=== PATIENT | male | born 1960 | race Caucasian/White ===

== ENCOUNTER 2018-03-24 15:55 | Inpatient (IN) | payer OTHER ==
[2018-03-24 17:38] VITALS: BMI 26.7
--- NOTE | 2018-03-24 18:09 | HP ---
Admission [facility] Chief Complaint: crack / cocaine rehabilitation Allergies/Adverse Reactions: Allergies Allergy/AdvReac Type Severity Reaction Status Date / Time No Known Drug Allergies Allergy Verified 03/24/18 17:36 NKA Allergy Uncoded 03/24/18 17:37 History of Present Illness: 57 yo male with nicotine and crack / cocaine dependence is here seeking rehabilitation. PMHX: depression. Denies suicidal / homicidal ideation or hx of suicide attempt. Last rehab five years ago, does not recall the name of the facility. Exam Limitations: No Limitations - Ebola screening Have you traveled outside of the country in the last 21 days: No (N) Have you had contact with anyone from an Ebola affected area: No Have you been sick,other than usual withdrawal symptoms: No Do you have a fever: No - Review of Systems Constitutional: No Symptoms Reported EENT: reports: No Symptoms Reported Respiratory: reports: No Symptoms reported Cardiac: reports: No Symptoms Reported GI: reports: No Symptoms Reported : reports: No Symptoms Reported Musculoskeletal: reports: No Symptoms Reported, Joint Stiffness Neuro: reports: No Symptoms reported Endocrine: reports: Increased Thirst Hematology: reports: No Symptoms Reported Psychiatric: reports: Orientated x3, Depressed Other Systems: Reviewed and Negative Patient History - Patient Medical History Hx Anemia: No Hx Asthma: No Hx Chronic Obstructive Pulmonary Disease (COPD): No Hx Cancer: No Hx Cardiac Disorders: No Hx Congestive Heart Failure: No Hx Hypertension: No Hx Hypercholesterolemia: No Hx Pacemaker: No HX Cerebrovascular Accident: No Hx Seizures: No Hx Dementia: No Hx Diabetes: No Hx Gastrointestinal Disorders: No Hx Liver Disease: No Hx Genitourinary Disorders: No Hx Sexually Transmitted Disorders: No Hx Renal Disease (ESRD): No Hx Thyroid Disease: No Hx Human Immunodeficiency Virus (HIV): No (declines testing ) Hx Hepatitis C: No Hx Depression: Yes Hx Suicide Attempt: No Hx Bipolar Disorder: No Hx Schizophrenia: No - Patient Surgical History Past Surgical History: No Hx Neurologic Surgery: No Hx Cataract Extraction: No Hx Cardiac Surgery: No Hx Lung Surgery: No Hx Breast Surgery: No Hx Breast Biopsy: No Hx Abdominal Surgery: No Hx Appendectomy: No Hx Cholecystectomy: No Hx Genitourinary Surgery: No Hx Section: No Hx Orthopedic Surgery: No Anesthesia Reaction: No - PPD History Previous Implant?: Yes Documented Results: Negative w/proof Implanted On Prior [facility] Admission?: No Date: 02/12/18 Results: 0MM PPD to be Administered?: No - Smoking Cessation Smoking history: Current every day smoker Have you smoked in the past 12 months: Yes Aproximately how many cigarettes per day: 10 Hx Chewing Tobacco Use: No Initiated information on smoking cessation: Yes 'Breaking Loose' booklet given: 03/24/18 - Substance & Tx. History Hx Alcohol Use: No Hx Substance Use: Yes Substance Use Type: Cocaine Hx Substance Use Treatment: Yes (5 years ago does not recall the name of the facility) - Substances Abused Cocaine Route: Smoking Frequency: 1-3 times last 30 days Amount used: $100 Age of first use: 38 Date of Last Use: 03/21/18 Family Disease History - Family Disease History Family History: Unable to Obtain Admission Physical Exam S - Vital Signs Vital Signs: Vital Signs - 24 hr 03/24/18 17:35 Temperature 99.6 F Pulse Rate 86 Respiratory 18 Rate Blood Pressure 90/65 - Physical General Appearance: Yes: No Apparent Distress, Disheveled, Other (malodorous, unkempt) HEENTM: Yes: EOMI, Hearing grossly Normal, Normal ENT Inspection, Normocephalic , Normal Voice, HELEN, Pharynx Normal, Tm's normal Respiratory: Yes: Chest Non-Tender, Lungs Clear, Normal Breath Sounds, No Respiratory Distress, No Accessory Muscle Use Neck: Yes: Within Normal Limits Breast: Yes: Breast Exam Deferred Cardiology: Yes: Regular Rhythm, Regular Rate Abdominal: Yes: Normal Bowel Sounds, Non Tender, Flat, Soft Genitourinary: Yes: Within Normal Limits Back: Yes: Normal Inspection Musculoskeletal: Yes: full range of Motion, Gait Steady, Pelvis Stable Extremities: Yes: Normal Capillary Refill, Normal Inspection, Normal Range of Motion, Non-Tender Neurological: Yes: legal paraprofessional II-XII NML intact, Fully Oriented, Alert, Motor Strength 5/5, Depressed Affect Integumentary: Yes: Normal Color, Dry, Warm Lymphatic: Yes: Within Normal Limits - Diagnostic (1) Cocaine dependence Current Visit: Yes Status: Acute Qualifiers: Substance use status: uncomplicated Qualified Code(s): F14.20 - Cocaine dependence, uncomplicated (2) Depression Current Visit: Yes Status: Acute Qualifiers: Depression Type: dysthymia Qualified Code(s): F34.1 - Dysthymic disorder (3) Poor hygiene Current Visit: Yes Status: Acute BHS Breath Alcohol Content Breath Alcohol Content: 0 Urine Drug Screen - Results Drug Screen Negative: No Urine Drug Screen Results: [facility]-Cocaine Inpatient Rehab Admission - Initial Determination Are CD services needed?: Yes Free of communicable disease: Yes Not in need of hospitalization: Yes - Rehab Admission Criteria Previous failed treatment: Yes Poor recovery environment: Yes Comorbidities: Yes Lacks judgement: Yes Patient is meeting Inpatient Rehab admission criteria:: Yes
[2018-03-24] MEDS ORDERED: LOPERAMIDE HCL 2 MG CAPSULE PO PRN (18:10)
[2018-03-24] MEDS ORDERED: MAG HYDROX/AL HYDROX/SIMETH 30 ML UNIT-DOSE CUP PO PRN (18:10)
[2018-03-24] MEDS ORDERED: NICOTINE POLACRILEX 2 MG GUM BC PRN (18:10)
[2018-03-24] MEDS ORDERED: ACETAMINOPHEN 325 MG TABLET (FP) PO PRN (18:10)
[2018-03-24] MEDS ORDERED: MAGNESIUM CITRATE 300 ML BOTTLE PO PRN (18:10)
[2018-03-24] MEDS ORDERED: IBUPROFEN 400 MG TABLET (FP) PO PRN (18:10)
[2018-03-24] MEDS ORDERED: guaiFENesin/D-METHORPHAN HB 10 ML UNIT-DOSE CUPS PO PRN (18:10)
[2018-03-24] MEDS ORDERED: P-EPHED 60MG/TRIPROLIDI 2.5MG TABLET PO PRN (18:10)
[2018-03-24] MEDS ORDERED: hydrOXYzine PAMOATE 50 MG CAPSULE (FP) PO PRN (18:10)
[2018-03-24] MEDS ORDERED: MENTHOL/PHENOL 1 EACH UD MM PRN (18:10)
[2018-03-24] MEDS ORDERED: MAGNESIUM HYDROX 2400MG/30ML ORAL SUSPENSION 30 ML CUP PO PRN (18:10)
[2018-03-24] MEDS: THIAMINE HCL 100 MG TABLET (FP) PO SCH (21:06)
[2018-03-24] MEDS ORDERED: MELATONIN 5 MG TABLETS PO PRN (22:00)
[2018-03-25 00:05] LABS: URINE APPEARANCE TURBID; URINE BILIRUBIN NEGATIVE (<2.0 mg/dL); URINE COLOR DKYELLOW; URINE GLUCOSE (UA) NEGATIVE (NEGATIVE); URINE KETONE NEGATIVE (NEGATIVE); URINE LEUK ESTERASE NEGATIVE (NEGATIVE); URINE NITRITE NEGATIVE (NEGATIVE); URINE PROTEIN NEGATIVE (NEGATIVE)
[2018-03-25] MEDS: NICOTINE 14 MG/24 HOURS TOPICAL PATCH TD SCH (09:43)
[2018-03-25] MEDS: PRENATAL VITAMINS W/ FOLIC ACID TABLET (FP) PO SCH (09:43)
[2018-03-25 10:20] LABS: HEMATOCRIT 43.5 % (35.4-49); HEMOGLOBIN 14.5 GM/dL (11.7-16.9); MCH 30.1 pg (25.7-33.7); MCHC 33.4 g/dl (32.0-35.9); MEAN CELL VOLUME 90.3 fl (80-96); MEAN PLT VOLUME 7.3 fl (7.5-11.1); PLATELET COUNT 286 K/MM3 (134-434); RBC 4.81 M/mm3 (4.00-5.60); RDW 13.9 % (11.9-15.9); WHITE BLOOD COUNT 7.1 K/mm3 (4.0-10.0)
--- NOTE | 2018-03-25 10:46 | HP ---
Psychiatrist Admission - Data Date of interview: 03/25/18 Admission source: [place] Identifying data: This is the first [facility] admission for this 57 years old single male, unemployed on SSD, domiciled living [facility] supportive housing Medical History: Unremarkable. Smokes 10 cigarettes daily Psychiatric History: Patient is very guarded and not forthcoming in providing information. Told real estate underwriter that he was diagnosed with depression, not Schizoprenia. He at first denies previous psychiatric admission then on further questioning admitted to one psychiatric hospitalization at [facility]. Reports that he receives [facility] care at [facility] and he is on Risperdal Consta 37.5 mg IM Q 2week. he said he got injection last on 03/18/18. Denies previus suicidal attempt. At present denies expriencing psychotic symptoms, s/H ideations Physical/Sexual Abuse/Trauma History: Denies history of emotional, physical or sexual as well as DV relationship. No service Additional Comment: Reports history of one felony convictio on charges of assault. Reports serving 2 years in [facility]. Reports being on parole till february Vital Signs: Vital Signs - 24 hr 03/24/18 03/24/18 03/25/18 17:35 19:11 00:30 Temperature 99.6 F 98.4 F Pulse Rate 86 84 Respiratory 18 16 18 Rate Blood Pressure 90/65 98/59 Allergies/Adverse Reactions: Allergies Allergy/AdvReac Type Severity Reaction Status Date / Time No Known Drug Allergies Allergy Verified 03/24/18 17:36 NKA Allergy Uncoded 03/24/18 17:37 Date of last physical exam: 03/24/18 Concur with the findings of this exam: Yes - Substance Abuse/Tx History Hx Alcohol Use: No Hx Substance Use: Yes Substance Use Type: Cocaine (Started smoking crack cocaine at age 38, consumes $ 100 worth monthly. Last smoked on 03/21/18) Hx Substance Use Treatment: Yes (3 previous inpt rehab ) Mental Status Exam - Mental Status Exam Alert and Oriented to: Time, Place, Person Cognitive Function: Fair Patient Appearance: Disheveled Mood: Hopeful, Euthymic (underlying irritability) Affect: Blunted Patient Behavior: Guarded, Cooperative Speech Pattern: Clear Voice Loudness: Normal Thought Process: Intact, Goal Oriented Thought Disorder: Not Present Hallucinations: Denies Suicidal Ideation: Denies Homicidal Ideation: Denies Insight/Judgement: Poor Sleep: Well Appetite: Good Muscle strength/Tone: Normal Gait/Station: Normal Psychiatric Findings - Problem List ([place] 1, 2,3) (1) Cocaine dependence Current Visit: Yes Status: Acute Qualifiers: Substance use status: uncomplicated Qualified Code(s): F14.20 - Cocaine dependence, uncomplicated (2) Nicotine dependence Current Visit: Yes Status: Chronic (3) Schizophrenia Current Visit: Yes Status: Chronic - Initial Treatment Plan Initial Treatment Plan: 1) Obtain collateral information from mental health provider about diagnoses, treatment. 2) Monitor progress
--- NOTE | 2018-03-25 11:17 | EKG ---
Test Reason : Blood Pressure : / mmHG Vent. Rate : 072 BPM Atrial Rate : 072 BPM P-R Int : 148 ms QRS Dur : 096 ms QT Int : 398 ms P-R-T Axes : 068 -03 040 degrees QTc Int : 435 ms NORMAL SINUS RHYTHM INCOMPLETE RIGHT BUNDLE BRANCH BLOCK BORDERLINE ECG NO PREVIOUS ECGS AVAILABLE Confirmed by BARRINGTON BUCKNER, ANNIKA ([id number]) on 03/25/2018 11:16:28 AM Referred By: Confirmed By:ANNIKA FERRIS MD
[2018-03-25 16:07] LABS: ALBUMIN 3.4 g/dl (3.4-5.0); ALK PHOS 59 U/L (45-117); BILIRUBIN,TOTAL 0.6 mg/dL (0.2-1.0); BLOOD UREA NITROGEN 13 mg/dL (7-18); CALCIUM 9.2 mg/dL (8.5-10.1); CO2 24 mmol/L (21-32); CREATININE 0.9 mg/dL (0.7-1.3); GLUCOSE,RANDOM 111 mg/dL (74-106); SGOT/AST 17 U/L (15-37); SGPT/ALT 23 U/L (12-78); TOT PROT 6.7 g/dl (6.4-8.2)
[2018-03-25 16:55] LABS: ANION GAP 12 (8-16); CHLORIDE 108 mmol/L (98-107); POTASSIUM 4.2 mmol/L (3.5-5.1); SODIUM 144 mmol/L (136-145)
[2018-03-25] MEDS: THIAMINE HCL 100 MG TABLET (FP) PO SCH (21:05)
[2018-03-26] MEDS: PRENATAL VITAMINS W/ FOLIC ACID TABLET (FP) PO SCH (09:54)
[2018-03-26] MEDS: NICOTINE 14 MG/24 HOURS TOPICAL PATCH TD SCH (09:55)
--- NOTE | 2018-03-26 13:41 | PN ---
[facility] Progress Note Note: Patient is in Rieperdal Consta 37.5 mg IN Q 14 days. According to correspondence from his clinic([facility]), he last received the injection on and he was due on 03/23/18. He is overdue by 3 days. Risperdal Consta 37.5 mg IM ordered to be given today
[2018-03-26] MEDS ORDERED: risperiDONE MICROSPHERES 37.5 MG/2 ML ML IM ONE (14:00)
[2018-03-26] MEDS: THIAMINE HCL 100 MG TABLET (FP) PO SCH (21:10)
[2018-03-27 06:46] VITALS: BP 95/61; PULSE 66; TEMP 98.8
[2018-03-27] MEDS: NICOTINE 14 MG/24 HOURS TOPICAL PATCH TD SCH (09:47)
[2018-03-27] MEDS: PRENATAL VITAMINS W/ FOLIC ACID TABLET (FP) PO SCH (09:47)
--- NOTE | 2018-03-27 18:33 | PN ---
S Progress Note Note: Per MIMI Kumar, pt is leaving rehab against medical advice. Does not want to wait for provider eval
== END 2018-03-27 18:20 | disposition left against medical advice (07) | DRG 894 ==
LOC: YASAS 15:55 → Y5N 17:53
PROVIDERS: ADMIT Psychiatry & Neurology Psychiatry; ATTEND Psychiatry & Neurology Psychiatry
PROC: HZ42ZZZ Group Counseling for Substance Abuse Treatment, Cognitive-Behavioral (ICD-10-PCS; principal; 2018-03-24)
DX: F14.20 Cocaine dependence, uncomplicated (principal); F17.210 Nicotine dependence, cigarettes, uncomplicated; F20.9 Schizophrenia, unspecified; F34.1 Dysthymic disorder; R46.0 Very low level of personal hygiene
CPT/HCPCS: 36415; 80053; 81003; 85027; 86593; 93005; 93010